=== PATIENT | male | born 1990 | race Caucasian/White ===

== ENCOUNTER 2019-08-20 01:15 | Emergency (ER) | payer OTHER ==
[~2019-08-20] VITALS: Ht 182.9 cm; Wt 77.1 kg
[2019-08-20 01:15] VITALS: BP 138/72
[2019-08-20 01:44] VITALS: BP 138/72
--- NOTE | 2019-08-20 01:44 | NUR ---
Patient discharged with v/s stable. He was seen, treated, and discharged by Rafael Mcdermott Written and verbal after care instructions given and explained. Patient verbalized understanding. Ambulatory with steady gait. All questions addressed prior to discharge. Advised to follow up with PMD.
== END 2019-08-20 01:44 ==
LOC: MED 01:15
DX: Z04.1 Encounter for examination and observation following transport accident (principal); Z02.83 Encounter for blood-alcohol and blood-drug test; V89.2XXA Person injured in unspecified motor-vehicle accident, traffic, initial encounter; Y93.89 Activity, other specified; Y92.89 Other specified places as the place of occurrence of the external cause; Y99.8 Other external cause status
CPT/HCPCS: 99283